=== PATIENT | male | born 1970 | race African-American/Black ===

== ENCOUNTER 2022-01-27 18:46 | Inpatient (IN) | payer OTHER ==
[2022-01-27] MEDS ORDERED: FAMOTIDINE 20 MG/50 ML IVPB 20 MG/50 ML MG IVPB ONE ×2 (19:38→20:09)
[2022-01-27] MEDS ORDERED: METOPROLOL TARTRATE 5 MG/5 ML VIAL ONE (20:18)
[2022-01-27] MEDS ORDERED: METOPROLOL TARTRATE 5 MG/5 ML VIAL IVPUSH ONE (20:21)
[2022-01-27 20:33] LABS: BASO % 0.3 % (0-2.0); HEMATOCRIT 40.8 % (35.4-49); HEMOGLOBIN 13.4 GM/dL (11.7-16.9); LYMPH % 13.3 % (8-40); MCH 30.7 pg (25.7-33.7); MCHC 32.8 g/dl (32.0-35.9); MEAN CELL VOLUME 93.8 fl (80-96); MEAN PLT VOLUME 9.5 fl (7.5-11.1); MONO % 6.3 % (3.8-10.2); NEUT % 80.1 % (42.8-82.8); PLATELET COUNT 227 10^3/uL (134-434); RBC 4.35 M/mm3 (4.00-5.60); RDW 13.8 % (11.9-15.9); WHITE BLOOD COUNT 10.8 K/mm3 (4.0-10.0)
[2022-01-27] MEDS ORDERED: SODIUM CHLORIDE 0.9% 500 ML INFUS.BAG IV ONE (20:34)
[2022-01-27 20:42] LABS: INR 1.82 (0.83-1.09); PROTHROMBIN TIME (PATIENT) 21.1 SEC (9.7-13.0)
[2022-01-27 20:45] LABS: ACTIVATED PTT 29.3 SECONDS (25.2-36.5)
[2022-01-27 20:50] LABS: CHLORIDE 95 mmol/L (98-107); SODIUM 130 mmol/L (136-145)
[2022-01-27 20:52] LABS: CALCIUM 8.5 mg/dL (8.5-10.1)
[2022-01-27 20:53] LABS: ANION GAP 9 MMOL/L (8-16); BLOOD UREA NITROGEN 50.8 mg/dL (7-18); CO2 25 mmol/L (21-32); GLUCOSE,RANDOM 114 mg/dL (74-106); MAGNESIUM 2.3 mg/dL (1.8-2.4)
[2022-01-27 20:55] LABS: ALBUMIN 2.5 g/dl (3.4-5.0)
[2022-01-27 20:56] LABS: CREATININE 1.9 mg/dL (0.55-1.3); SGOT/AST 98 U/L (15-37); SGPT/ALT 134 U/L (13-61)
[2022-01-27 20:58] LABS: BILIRUBIN,TOTAL 1.4 mg/dL (0.2-1); TOT PROT 6.6 g/dl (6.4-8.2)
[2022-01-27 20:59] LABS: ALK PHOS 143 U/L (45-117)
[2022-01-27 21:01] LABS: N-TERMINAL BNP 10474.8 pg/ml (5-125)
[2022-01-27] MEDS: APIXABAN 5 MG TABLET PO SCH (21:12)
[2022-01-27] MEDS ORDERED: DIGOXIN 0.5 MG/2 ML AMPUL IVPUSH ONE ×2 (21:23→23:50)
[2022-01-27] MEDS ORDERED: ASPIRIN 81 MG CHEWABLE TABLETS PO ONE (21:24)
[2022-01-27] MEDS ORDERED: DIGOXIN 0.5 MG/2 ML AMPUL ONE (21:56)
[2022-01-27] MEDS ORDERED: ASPIRIN 81 MG CHEWABLE TABLETS ONE (21:56)
[2022-01-27 23:07] LABS: URINE AMPHETAMINES NEGATIVE (NEGATIVE)
[2022-01-27 23:08] LABS: METHADONE, UR NEGATIVE (NEGATIVE); PHENCYCLIDINE,URINE NEGATIVE (NEGATIVE); URINE BARBITURATES NEGATIVE (NEGATIVE); URINE BENZODIAZEPINES NEGATIVE (NEGATIVE)
[2022-01-27 23:12] LABS: COCAINE, UR POSITIVE (NEGATIVE); OPIATES, URI POSITIVE (NEGATIVE)
[2022-01-27 23:20] LABS: EPI CELLS 1 /uL (0-25.1); HYALINE CASTS 0 /uL (0-3.1); PH,URINE 5.5 (5.0-8.0); URINE APPEARANCE CLEAR; URINE BACTERIA 2 /uL (0-1359); URINE BILIRUBIN NEGATIVE (NEGATIVE); URINE COLOR YELLOW; URINE GLUCOSE (UA) NEGATIVE (NEGATIVE); URINE KETONE NEGATIVE (NEGATIVE); URINE LEUK ESTERASE NEGATIVE (NEGATIVE); URINE NITRITE NEGATIVE (NEGATIVE); URINE PROTEIN 1+ (NEGATIVE); URINE RBC 7 /uL (0-23.9); URINE WBC 3 /uL (0-25.8)
[2022-01-28] MEDS ORDERED: LORazepam 2 MG/ML SDV VIAL IVPUSH PRN (00:13)
[2022-01-28 03:31] LABS: CALCIUM 8.1 mg/dL (8.5-10.1)
[2022-01-28 03:32] LABS: BLOOD UREA NITROGEN 46.1 mg/dL (7-18)
[2022-01-28 03:35] LABS: CREATININE 1.7 mg/dL (0.55-1.3)
[2022-01-28 07:46] LABS: BASO % 0.1 % (0-2.0); EOS % 0.1 % (0-4.5); HEMATOCRIT 37.1 % (35.4-49); HEMOGLOBIN 12.4 GM/dL (11.7-16.9); LYMPH % 7.2 % (8-40); MCH 30.8 pg (25.7-33.7); MCHC 33.4 g/dl (32.0-35.9); MEAN CELL VOLUME 92.4 fl (80-96); MEAN PLT VOLUME 9.3 fl (7.5-11.1); MONO % 5.3 % (3.8-10.2); NEUT % 87.3 % (42.8-82.8); PLATELET COUNT 191 10^3/uL (134-434); RBC 4.01 M/mm3 (4.00-5.60); RDW 13.6 % (11.9-15.9); WHITE BLOOD COUNT 10.3 K/mm3 (4.0-10.0)
[2022-01-28 08:12] LABS: TOT PROT 5.5 g/dl (6.4-8.2)
[2022-01-28 08:13] LABS: BILIRUBIN,TOTAL 1.7 mg/dL (0.2-1)
[2022-01-28 08:14] LABS: BLOOD UREA NITROGEN 39.8 mg/dL (7-18); PHOSPHOROUS 2.6 mg/dL (2.5-4.9)
[2022-01-28 08:17] LABS: CREATININE 1.4 mg/dL (0.55-1.3)
[2022-01-28 08:19] LABS: CALCIUM 7.8 mg/dL (8.5-10.1); MAGNESIUM 2.1 mg/dL (1.8-2.4)
[2022-01-28 08:22] LABS: ALBUMIN 1.9 g/dl (3.4-5.0)
[2022-01-28] MEDS: NICOTINE 7 MG/24 HOURS TOPICAL PATCH TD SCH (09:34)
[2022-01-28] MEDS: THIAMINE HCL 100 MG TABLET (FP) PO SCH (09:34)
[2022-01-28] MEDS: DIGOXIN 0.5 MG/2 ML AMPUL IVPUSH SCH ×3 (09:34→23:09)
[2022-01-28] MEDS: FOLIC ACID 1 MG TABLET (FP) PO SCH (09:34)
[2022-01-28] MEDS: APIXABAN 5 MG TABLET PO SCH ×2 (09:34→22:06)
[2022-01-28] MEDS ORDERED: METOPROLOL TARTRATE 5 MG/5 ML VIAL IVPUSH PRN (09:42)
[2022-01-28] MEDS ORDERED: cloNIDine HCL 0.1 MG TABLET PO PRN (10:19)
[2022-01-28] MEDS ORDERED: LORazepam 0.5 MG TABLET PO PRN (10:20)
[2022-01-28] MEDS ORDERED: methaDONE HCL 10 MG TABLET (FOR DETOX USE ONLY) PO ONE (10:30)
[2022-01-28] MEDS ORDERED: methaDONE HCL 10 MG TABLET PO ONE (12:00)
[2022-01-28] MEDS ORDERED: methaDONE HCL 10 MG TABLET ONE (12:24)
[2022-01-28] MEDS ORDERED: LISINOPRIL 5 MG TABLET PO SCH (19:15)
[2022-01-28] MEDS: ACETAMINOPHEN 1000 MG/100 ML BAG IVPB PRN (22:05)
[2022-01-28] MEDS: CARVEDILOL 3.125 MG TABLET (FP) PO SCH (22:06)
[2022-01-28] MEDS: SACUBITRIL/VALSARTAN 24 MG-26 MG TABLET PO SCH (22:06)
[2022-01-28] MEDS: SPIRONOLACTONE 25 MG TABLET PO SCH (22:06)
[2022-01-28] MEDS ORDERED: DIGOXIN 0.5 MG/2 ML AMPUL ONE (23:01)
[2022-01-29 07:00] LABS: BASO % 0.2 % (0-2.0); EOS % 0.2 % (0-4.5); HEMATOCRIT 40.6 % (35.4-49); HEMOGLOBIN 13.6 GM/dL (11.7-16.9); MCH 31.3 pg (25.7-33.7); MCHC 33.6 g/dl (32.0-35.9); MEAN CELL VOLUME 93.1 fl (80-96); MEAN PLT VOLUME 8.6 fl (7.5-11.1); NEUT % 86.6 % (42.8-82.8); PLATELET COUNT 230 10^3/uL (134-434); RBC 4.36 M/mm3 (4.00-5.60); RDW 13.7 % (11.9-15.9); WHITE BLOOD COUNT 11.1 K/mm3 (4.0-10.0)
[2022-01-29 07:05] LABS: INR 1.7 (0.83-1.09); PROTHROMBIN TIME (PATIENT) 19.6 SEC (9.7-13.0)
[2022-01-29 07:26] LABS: BLOOD UREA NITROGEN 19.1 mg/dL (7-18); CALCIUM 7.7 mg/dL (8.5-10.1); MAGNESIUM 2.1 mg/dL (1.8-2.4)
[2022-01-29 07:27] LABS: ALBUMIN 1.8 g/dl (3.4-5.0)
[2022-01-29 07:30] LABS: CREATININE 1.1 mg/dL (0.55-1.3)
[2022-01-29 07:31] LABS: BILIRUBIN,TOTAL 1.4 mg/dL (0.2-1); TOT PROT 5.4 g/dl (6.4-8.2)
[2022-01-29] MEDS ORDERED: methaDONE HCL 10 MG TABLET ONE (11:35)
[2022-01-29] MEDS: THIAMINE HCL 100 MG TABLET (FP) PO SCH (11:43)
[2022-01-29] MEDS: NICOTINE 7 MG/24 HOURS TOPICAL PATCH TD SCH (11:43)
[2022-01-29] MEDS: SPIRONOLACTONE 25 MG TABLET PO SCH (11:43)
[2022-01-29] MEDS: FOLIC ACID 1 MG TABLET (FP) PO SCH (11:44)
[2022-01-29] MEDS: CARVEDILOL 3.125 MG TABLET (FP) PO SCH ×3 (11:44→21:10)
[2022-01-29] MEDS: APIXABAN 5 MG TABLET PO SCH ×3 (11:44→21:10)
[2022-01-29] MEDS: SACUBITRIL/VALSARTAN 24 MG-26 MG TABLET PO SCH ×3 (11:44→21:10)
[2022-01-30] MEDS ORDERED: methaDONE HCL 10 MG TABLET PO ONE (06:00)
[2022-01-30 07:14] LABS: BASO % 0.2 % (0-2.0); HEMATOCRIT 44.2 % (35.4-49); HEMOGLOBIN 14.6 GM/dL (11.7-16.9); LYMPH % 8.5 % (8-40); MCH 30.8 pg (25.7-33.7); MCHC 33.1 g/dl (32.0-35.9); MEAN CELL VOLUME 93.1 fl (80-96); NEUT % 85.3 % (42.8-82.8); PLATELET COUNT 288 10^3/uL (134-434); RBC 4.75 M/mm3 (4.00-5.60); RDW 14.1 % (11.9-15.9); WHITE BLOOD COUNT 13.1 K/mm3 (4.0-10.0)
[2022-01-30 07:29] LABS: CALCIUM 8.1 mg/dL (8.5-10.1)
[2022-01-30 07:30] LABS: ALBUMIN 1.8 g/dl (3.4-5.0); BLOOD UREA NITROGEN 14.3 mg/dL (7-18); MAGNESIUM 1.9 mg/dL (1.8-2.4)
[2022-01-30 07:33] LABS: CREATININE 0.9 mg/dL (0.55-1.3)
[2022-01-30 07:35] LABS: BILIRUBIN,TOTAL 1.6 mg/dL (0.2-1); TOT PROT 6.1 g/dl (6.4-8.2)
[2022-01-30] MEDS: THIAMINE HCL 100 MG TABLET (FP) PO SCH (09:42)
[2022-01-30] MEDS: SPIRONOLACTONE 25 MG TABLET PO SCH (09:42)
[2022-01-30] MEDS: FOLIC ACID 1 MG TABLET (FP) PO SCH (09:42)
[2022-01-30] MEDS: CARVEDILOL 3.125 MG TABLET (FP) PO SCH ×3 (09:42→21:12)
[2022-01-30] MEDS: APIXABAN 5 MG TABLET PO SCH ×3 (09:42→21:13)
[2022-01-30] MEDS: NICOTINE 7 MG/24 HOURS TOPICAL PATCH TD SCH (09:43)
[2022-01-30] MEDS: SACUBITRIL/VALSARTAN 24 MG-26 MG TABLET PO SCH ×3 (09:43→21:15)
[2022-01-30] MEDS ORDERED: methaDONE HCL 10 MG TABLET (FOR DETOX USE ONLY) PO ONE (10:00)
[2022-01-30] MEDS: LORazepam 1 MG TABLET PO PRN (20:39)
[2022-01-30] MEDS: ACETAMINOPHEN 1000 MG/100 ML BAG IVPB PRN (21:04)
[2022-01-31] MEDS ORDERED: LORazepam 0.5 MG TABLET PO PRN
[2022-01-31 00:07] LABS: FIBROSIS SCORE. 0.69 (0.00-0.21); HCV ALPHA 2 MACRO CHART 170 mg/dL (110-276); NECRO.INFLAM ACT.SCORE 0.74 (0.00-0.17); NECROINFLAM. ACTIVITY GRADE A3-Severe activity (.)
[2022-01-31] MEDS ORDERED: methaDONE HCL 10 MG TABLET ONE (05:44)
[2022-01-31] MEDS: METOPROLOL TARTRATE 5 MG/5 ML VIAL IVPUSH PRN ×3 (07:34→19:36)
[2022-01-31 07:39] LABS: BASO % 0.3 % (0-2.0); EOS % 0.2 % (0-4.5); HEMATOCRIT 48.1 % (35.4-49); HEMOGLOBIN 15.7 GM/dL (11.7-16.9); LYMPH % 17.6 % (8-40); MCH 30.8 pg (25.7-33.7); MCHC 32.7 g/dl (32.0-35.9); MEAN CELL VOLUME 94.1 fl (80-96); MEAN PLT VOLUME 9.5 fl (7.5-11.1); MONO % 5.5 % (3.8-10.2); NEUT % 76.4 % (42.8-82.8); PLATELET COUNT 370 10^3/uL (134-434); RBC 5.11 M/mm3 (4.00-5.60); WHITE BLOOD COUNT 12.6 K/mm3 (4.0-10.0)
[2022-01-31 07:58] LABS: CALCIUM 8.7 mg/dL (8.5-10.1)
[2022-01-31 07:59] LABS: BLOOD UREA NITROGEN 19.8 mg/dL (7-18); MAGNESIUM 2.2 mg/dL (1.8-2.4)
[2022-01-31 08:03] LABS: BILIRUBIN,TOTAL 1.6 mg/dL (0.2-1); TOT PROT 6.6 g/dl (6.4-8.2)
[2022-01-31] MEDS: LORazepam 1 MG TABLET PO PRN (10:00)
[2022-01-31] MEDS: THIAMINE HCL 100 MG TABLET (FP) PO SCH (10:00)
[2022-01-31] MEDS: CARVEDILOL 3.125 MG TABLET (FP) PO SCH ×2 (10:00→22:09)
[2022-01-31] MEDS: NICOTINE 7 MG/24 HOURS TOPICAL PATCH TD SCH (10:00)
[2022-01-31] MEDS: APIXABAN 5 MG TABLET PO SCH ×2 (10:00→22:09)
[2022-01-31] MEDS: SPIRONOLACTONE 25 MG TABLET PO SCH (10:00)
[2022-01-31] MEDS: FOLIC ACID 1 MG TABLET (FP) PO SCH (10:00)
[2022-01-31] MEDS: SACUBITRIL/VALSARTAN 24 MG-26 MG TABLET PO SCH ×2 (10:03→22:09)
[2022-01-31] MEDS: FUROSEMIDE 40 MG/4 ML INJECTABLE VIAL IVPUSH SCH (13:54)
[2022-01-31] MEDS: LORazepam 1 MG TABLET PO SCH ×2 (18:06→23:07)
[2022-02-01] MEDS: LORazepam 0.5 MG TABLET PO SCH ×2 (05:29→11:22)
[2022-02-01] MEDS ORDERED: methaDONE HCL 10 MG TABLET PO ONE (06:00)
[2022-02-01 07:11] LABS: BASO % 0.6 % (0-2.0); EOS % 0.5 % (0-4.5); HEMATOCRIT 48.1 % (35.4-49); HEMOGLOBIN 15.9 GM/dL (11.7-16.9); LYMPH % 26.5 % (8-40); MCH 30.7 pg (25.7-33.7); MEAN CELL VOLUME 92.9 fl (80-96); MEAN PLT VOLUME 8.8 fl (7.5-11.1); MONO % 6.9 % (3.8-10.2); NEUT % 65.5 % (42.8-82.8); PLATELET COUNT 394 10^3/uL (134-434); RBC 5.17 M/mm3 (4.00-5.60); RDW 14.4 % (11.9-15.9); WHITE BLOOD COUNT 10.8 K/mm3 (4.0-10.0)
[2022-02-01 07:30] LABS: CALCIUM 8.4 mg/dL (8.5-10.1)
[2022-02-01 07:31] LABS: ALBUMIN 1.9 g/dl (3.4-5.0); BLOOD UREA NITROGEN 20.8 mg/dL (7-18); MAGNESIUM 2.2 mg/dL (1.8-2.4)
[2022-02-01 07:33] LABS: CREATININE 1.1 mg/dL (0.55-1.3)
[2022-02-01 07:34] LABS: BILIRUBIN,TOTAL 1.7 mg/dL (0.2-1); TOT PROT 6.6 g/dl (6.4-8.2)
[2022-02-01] MEDS ORDERED: methaDONE HCL 10 MG TABLET (FOR DETOX USE ONLY) PO ONE (10:00)
[2022-02-01] MEDS: FUROSEMIDE 40 MG/4 ML INJECTABLE VIAL IVPUSH SCH (10:11)
[2022-02-01] MEDS: FOLIC ACID 1 MG TABLET (FP) PO SCH (10:11)
[2022-02-01] MEDS: APIXABAN 5 MG TABLET PO SCH ×2 (10:11→21:40)
[2022-02-01] MEDS: SPIRONOLACTONE 25 MG TABLET PO SCH (10:11)
[2022-02-01] MEDS: THIAMINE HCL 100 MG TABLET (FP) PO SCH (10:11)
[2022-02-01] MEDS: CARVEDILOL 3.125 MG TABLET (FP) PO SCH ×2 (10:12→21:40)
[2022-02-01] MEDS: SACUBITRIL/VALSARTAN 24 MG-26 MG TABLET PO SCH ×2 (10:12→21:40)
[2022-02-01] MEDS: NICOTINE 7 MG/24 HOURS TOPICAL PATCH TD SCH (10:12)
[2022-02-01] MEDS ORDERED: AMINO ACIDS 4.25%/D5W 1,000 ML IV SCH (11:30)
[2022-02-01 12:08] LABS: ARTERIAL BLD GAS O2 SATURATION 97.6 % (95-98); ARTERIAL BLOOD GAS BASE EXCESS 2.8 mmol/L (-2-2); ARTERIAL BLOOD GAS PO2 87.6 mmHg (80-100); ARTERIAL BLOOD GAS pH 7.534 (7.350-7.450)
[2022-02-01 12:10] LABS: ALLENS TEST POSITIVE
[2022-02-01 13:58] LABS: URINE APPEARANCE CLEAR; URINE BILIRUBIN NEGATIVE (NEGATIVE); URINE COLOR YELLOW; URINE GLUCOSE (UA) NEGATIVE (NEGATIVE); URINE KETONE NEGATIVE (NEGATIVE); URINE LEUK ESTERASE NEGATIVE (NEGATIVE); URINE NITRITE NEGATIVE (NEGATIVE); URINE PROTEIN NEGATIVE (NEGATIVE)
[2022-02-02] MEDS ORDERED: LORazepam 0.5 MG TABLET PO ONE (05:00)
[2022-02-02 07:30] LABS: BASO % 0.7 % (0-2.0); EOS % 0.6 % (0-4.5); HEMATOCRIT 46.9 % (35.4-49); HEMOGLOBIN 15.3 GM/dL (11.7-16.9); LYMPH % 37.5 % (8-40); MCH 30.7 pg (25.7-33.7); MCHC 32.7 g/dl (32.0-35.9); MEAN CELL VOLUME 93.8 fl (80-96); MEAN PLT VOLUME 8.7 fl (7.5-11.1); MONO % 7.2 % (3.8-10.2); PLATELET COUNT 381 10^3/uL (134-434); RDW 13.9 % (11.9-15.9); WHITE BLOOD COUNT 7.7 K/mm3 (4.0-10.0)
[2022-02-02 07:47] LABS: ALBUMIN 1.8 g/dl (3.4-5.0); MAGNESIUM 1.8 mg/dL (1.8-2.4)
[2022-02-02 07:48] LABS: BLOOD UREA NITROGEN 19.5 mg/dL (7-18)
[2022-02-02 07:50] LABS: CREATININE 1.1 mg/dL (0.55-1.3)
[2022-02-02 07:51] LABS: TOT PROT 6.7 g/dl (6.4-8.2)
[2022-02-02] MEDS: NICOTINE 7 MG/24 HOURS TOPICAL PATCH TD SCH (09:15)
[2022-02-02] MEDS: FOLIC ACID 1 MG TABLET (FP) PO SCH (09:15)
[2022-02-02] MEDS: APIXABAN 5 MG TABLET PO SCH (09:15)
[2022-02-02] MEDS: THIAMINE HCL 100 MG TABLET (FP) PO SCH (09:15)
[2022-02-02] MEDS: SPIRONOLACTONE 25 MG TABLET PO SCH (09:15)
[2022-02-02] MEDS: CARVEDILOL 3.125 MG TABLET (FP) PO SCH ×2 (09:15→23:05)
[2022-02-02] MEDS: FUROSEMIDE 40 MG/4 ML INJECTABLE VIAL IVPUSH SCH (09:21)
[2022-02-02] MEDS: SACUBITRIL/VALSARTAN 24 MG-26 MG TABLET PO SCH ×2 (09:21→23:05)
[2022-02-02] MEDS ORDERED: HEPARIN NA (PORCINE) 5,000 UNITS/ML 1ML VIAL IVPUSH ONE (15:30)
[2022-02-02] MEDS ORDERED: HEPARIN NA (PORCINE) 5,000 UNITS/ML 1ML VIAL IVPUSH PRN ×2 (15:30)
[2022-02-02] MEDS ORDERED: valACYclovir HCL 500 MG TABLET (FP) PO SCH (15:44)
[2022-02-02] MEDS: MINERAL OIL/PET HY-PHL TOPICAL OINTMENT 454 GM JAR TP SCH ×2 (16:09→23:00)
[2022-02-02] MEDS: HEPARIN INFUSION - 25,000 UNITS/500 ML INFUS.BAG IVPB SCH (17:07)
[2022-02-02] MEDS ORDERED: LORazepam 1 MG TABLET PO ONE (17:41)
[2022-02-02 18:08] LABS: INR 1.54 (0.83-1.09); PROTHROMBIN TIME (PATIENT) 17.8 SEC (9.7-13.0)
[2022-02-02] MEDS: valACYclovir HCL 500 MG TABLET (FP) PO SCH (23:00)
[2022-02-03 08:22] LABS: BASO % 0.9 % (0-2.0); HEMATOCRIT 46.8 % (35.4-49); HEMOGLOBIN 15.4 GM/dL (11.7-16.9); LYMPH % 39.3 % (8-40); MCH 30.4 pg (25.7-33.7); MCHC 32.9 g/dl (32.0-35.9); MEAN CELL VOLUME 92.4 fl (80-96); MEAN PLT VOLUME 8.8 fl (7.5-11.1); MONO % 7.2 % (3.8-10.2); NEUT % 51.6 % (42.8-82.8); PLATELET COUNT 387 10^3/uL (134-434); RBC 5.06 M/mm3 (4.00-5.60); RDW 13.9 % (11.9-15.9); WHITE BLOOD COUNT 7.5 K/mm3 (4.0-10.0)
[2022-02-03 08:42] LABS: CALCIUM 8.2 mg/dL (8.5-10.1)
[2022-02-03 08:44] LABS: ALBUMIN 1.9 g/dl (3.4-5.0); BLOOD UREA NITROGEN 20.4 mg/dL (7-18); MAGNESIUM 1.9 mg/dL (1.8-2.4)
[2022-02-03 08:46] LABS: CREATININE 1.1 mg/dL (0.55-1.3)
[2022-02-03 08:49] LABS: BILIRUBIN,TOTAL 0.6 mg/dL (0.2-1); TOT PROT 6.4 g/dl (6.4-8.2)
[2022-02-03] MEDS: FUROSEMIDE 40 MG/4 ML INJECTABLE VIAL IVPUSH SCH (09:09)
[2022-02-03] MEDS: FOLIC ACID 1 MG TABLET (FP) PO SCH (09:09)
[2022-02-03] MEDS: NICOTINE 7 MG/24 HOURS TOPICAL PATCH TD SCH (09:10)
[2022-02-03] MEDS: THIAMINE HCL 100 MG TABLET (FP) PO SCH (09:10)
[2022-02-03] MEDS: SPIRONOLACTONE 25 MG TABLET PO SCH ×2 (09:10→09:11)
[2022-02-03] MEDS: valACYclovir HCL 500 MG TABLET (FP) PO SCH ×2 (09:10→22:25)
[2022-02-03] MEDS: MINERAL OIL/PET HY-PHL TOPICAL OINTMENT 454 GM JAR TP SCH ×2 (09:11→22:26)
[2022-02-03] MEDS: CARVEDILOL 3.125 MG TABLET (FP) PO SCH ×2 (09:13→22:25)
[2022-02-03] MEDS: SACUBITRIL/VALSARTAN 24 MG-26 MG TABLET PO SCH ×2 (09:14→22:26)
[2022-02-03] MEDS: LORazepam 1 MG TABLET PO PRN ×2 (12:14→22:24)
[2022-02-03 14:08] LABS: SARS-CoV-2 NAA Not Detected (Not Detected)
[2022-02-03 16:13] VITALS: BMI 23.3
[2022-02-03] MEDS: HEPARIN INFUSION - 25,000 UNITS/500 ML INFUS.BAG IVPB SCH (19:28)
[2022-02-03] MEDS ORDERED: ACETAMINOPHEN 325 MG TABLET (FP) PO PRN (20:12)
[2022-02-04 07:23] LABS: ALBUMIN 1.9 g/dl (3.4-5.0); BLOOD UREA NITROGEN 16.8 mg/dL (7-18); CALCIUM 7.9 mg/dL (8.5-10.1)
[2022-02-04 08:25] LABS: BILIRUBIN,DIRECT 0.2 mg/dL (0.0-0.2); BILIRUBIN,TOTAL 0.4 mg/dL (0.2-1); TOT PROT 6.4 g/dl (6.4-8.2)
[2022-02-04] MEDS ORDERED: MULTIVITAMINS (DAILY MVI) TABLET (FP) PO SCH (10:00)
[2022-02-04] MEDS: LORazepam 1 MG TABLET PO PRN ×2 (10:39→22:14)
[2022-02-04] MEDS: NICOTINE 7 MG/24 HOURS TOPICAL PATCH TD SCH (10:39)
[2022-02-04] MEDS: valACYclovir HCL 500 MG TABLET (FP) PO SCH ×2 (10:40→22:14)
[2022-02-04] MEDS: FOLIC ACID 1 MG TABLET (FP) PO SCH (10:43)
[2022-02-04] MEDS: FUROSEMIDE 40 MG/4 ML INJECTABLE VIAL IVPUSH SCH (10:44)
[2022-02-04] MEDS: THIAMINE HCL 100 MG TABLET (FP) PO SCH (10:44)
[2022-02-04] MEDS: CARVEDILOL 3.125 MG TABLET (FP) PO SCH ×2 (10:44→22:14)
[2022-02-04] MEDS: MINERAL OIL/PET HY-PHL TOPICAL OINTMENT 454 GM JAR TP SCH ×2 (10:44→22:15)
[2022-02-04] MEDS: SPIRONOLACTONE 25 MG TABLET PO SCH (10:44)
[2022-02-04] MEDS: SACUBITRIL/VALSARTAN 24 MG-26 MG TABLET PO SCH ×2 (10:45→22:15)
[2022-02-04] MEDS ORDERED: HEPARIN NA (PORCINE) 5,000 UNITS/ML 1ML VIAL ONE (14:35)
[2022-02-04] MEDS ORDERED: LIDOCAINE HCL 1%, 10 MG/ML (20ML VIAL) ONE (14:35)
[2022-02-04] MEDS ORDERED: MIDAZOLAM HCL 2 MG/2 ML SINGLE DOSE VIAL ONE (15:13)
[2022-02-04] MEDS ORDERED: LIDOCAINE HCL 2% 100 MG/5 ML DISP.SYRIN ONE (15:13)
[2022-02-04] MEDS ORDERED: ETOMIDATE 20 MG/10 ML AMPUL IVPUSH ONE (15:32)
[2022-02-04] MEDS ORDERED: CLINDAMYCIN PHOSPHATE 600 MG/4 ML VIAL IVPB ONE (15:50)
[2022-02-04] MEDS ORDERED: CLINDAMYCIN PHOSPHATE 600 MG/4 ML VIAL ONE (15:55)
[2022-02-04] MEDS ORDERED: SODIUM CHLORIDE 0.9% P/F 10 ML VIAL IJ ONE (16:28)
[2022-02-04] MEDS ORDERED: PROMETHAZINE HCL 25 MG/1 ML VIAL IVPUSH PRN ×2 (17:47→18:06)
[2022-02-04] MEDS ORDERED: ONDANSETRON 4 MG/2 ML VIAL IVPUSH PRN ×2 (17:47→18:06)
[2022-02-04] MEDS ORDERED: oxyCODONE HCL 5 MG TABLET PO PRN (17:47)
[2022-02-04] MEDS ORDERED: APIXABAN 5 MG TABLET PO SCH (17:59)
[2022-02-04] MEDS ORDERED: METOPROLOL TARTRATE 5 MG/5 ML VIAL IVPUSH PRN (18:06)
[2022-02-04] MEDS ORDERED: HEPARIN NA (PORCINE) 5,000 UNITS/ML 1ML VIAL IVPUSH PRN ×3 (19:15→19:16)
[2022-02-04] MEDS: HEPARIN INFUSION - 25,000 UNITS/500 ML INFUS.BAG IVPB SCH (19:27)
[2022-02-04] MEDS: oxyCODONE HCL 5 MG TABLET PO PRN (20:34)
[2022-02-05] MEDS: oxyCODONE HCL 5 MG TABLET PO PRN ×3 (00:50→17:17)
[2022-02-05] MEDS: LORazepam 1 MG TABLET PO PRN ×3 (06:46→21:42)
[2022-02-05 07:07] LABS: BASO % 1.2 % (0-2.0); EOS % 2.2 % (0-4.5); HEMATOCRIT 43.1 % (35.4-49); HEMOGLOBIN 14.2 GM/dL (11.7-16.9); MEAN CELL VOLUME 93.9 fl (80-96); MEAN PLT VOLUME 8.3 fl (7.5-11.1); MONO % 7.8 % (3.8-10.2); NEUT % 40.8 % (42.8-82.8); PLATELET COUNT 327 10^3/uL (134-434); RBC 4.59 M/mm3 (4.00-5.60); RDW 14.3 % (11.9-15.9); WHITE BLOOD COUNT 5.9 K/mm3 (4.0-10.0)
[2022-02-05 07:20] LABS: ALBUMIN 1.9 g/dl (3.4-5.0)
[2022-02-05 07:21] LABS: CALCIUM 7.9 mg/dL (8.5-10.1)
[2022-02-05 07:22] LABS: BILIRUBIN,TOTAL 0.4 mg/dL (0.2-1); CREATININE 1.3 mg/dL (0.55-1.3); MAGNESIUM 2.1 mg/dL (1.8-2.4); TOT PROT 6.4 g/dl (6.4-8.2)
[2022-02-05] MEDS: HEPARIN INFUSION - 25,000 UNITS/500 ML INFUS.BAG IVPB SCH (09:00)
[2022-02-05] MEDS: valACYclovir HCL 500 MG TABLET (FP) PO SCH ×2 (09:10→21:46)
[2022-02-05] MEDS: CARVEDILOL 3.125 MG TABLET (FP) PO SCH ×2 (09:10→21:45)
[2022-02-05] MEDS: SACUBITRIL/VALSARTAN 24 MG-26 MG TABLET PO SCH ×2 (09:12→21:45)
[2022-02-05] MEDS: NICOTINE 7 MG/24 HOURS TOPICAL PATCH TD SCH ×2 (09:14→09:15)
[2022-02-05] MEDS: SPIRONOLACTONE 25 MG TABLET PO SCH (09:14)
[2022-02-05] MEDS: THIAMINE HCL 100 MG TABLET (FP) PO SCH (09:15)
[2022-02-05] MEDS: FUROSEMIDE 40 MG/4 ML INJECTABLE VIAL IVPUSH SCH (09:15)
[2022-02-05] MEDS: MINERAL OIL/PET HY-PHL TOPICAL OINTMENT 454 GM JAR TP SCH ×2 (09:18→21:43)
[2022-02-05] MEDS: FOLIC ACID 1 MG TABLET (FP) PO SCH (09:18)
[2022-02-05] MEDS: MULTIVITAMINS (DAILY MVI) TABLET (FP) PO SCH (11:39)
[2022-02-05 23:32] VITALS: TEMP 98.5
[2022-02-06] MEDS: HEPARIN INFUSION - 25,000 UNITS/500 ML INFUS.BAG IVPB SCH (00:40)
[2022-02-06 07:18] LABS: HEMOGLOBIN 14.4 GM/dL (11.7-16.9); MCH 30.8 pg (25.7-33.7); MCHC 32.8 g/dl (32.0-35.9); MEAN CELL VOLUME 93.9 fl (80-96); MEAN PLT VOLUME 8.2 fl (7.5-11.1); PLATELET COUNT 344 10^3/uL (134-434); RBC 4.69 M/mm3 (4.00-5.60); RDW 14.6 % (11.9-15.9); WHITE BLOOD COUNT 5.9 K/mm3 (4.0-10.0)
[2022-02-06] MEDS: MINERAL OIL/PET HY-PHL TOPICAL OINTMENT 454 GM JAR TP SCH (09:00)
[2022-02-06] MEDS ORDERED: REGADENOSON 0.4 MG/5 ML PRE-FILLED SYRINGE IVPUSH ONE ×2 (09:45→10:09)
[2022-02-06] MEDS: SPIRONOLACTONE 25 MG TABLET PO SCH (10:00)
[2022-02-06] MEDS: THIAMINE HCL 100 MG TABLET (FP) PO SCH (10:00)
[2022-02-06] MEDS: SACUBITRIL/VALSARTAN 24 MG-26 MG TABLET PO SCH (10:00)
[2022-02-06] MEDS: MULTIVITAMINS (DAILY MVI) TABLET (FP) PO SCH (10:00)
[2022-02-06] MEDS: FOLIC ACID 1 MG TABLET (FP) PO SCH (10:00)
[2022-02-06] MEDS: FUROSEMIDE 40 MG/4 ML INJECTABLE VIAL IVPUSH SCH (10:00)
[2022-02-06] MEDS: CARVEDILOL 3.125 MG TABLET (FP) PO SCH (10:00)
[2022-02-06 12:15] VITALS: BP 115/57
[2022-02-06] MEDS: LORazepam 1 MG TABLET PO PRN (12:35)
[2022-02-06] MEDS: NICOTINE 7 MG/24 HOURS TOPICAL PATCH TD SCH ×2 (12:49→13:07)
[2022-02-06] MEDS: valACYclovir HCL 500 MG TABLET (FP) PO SCH (12:49)
[2022-02-06 13:31] VITALS: PULSE 169
== END 2022-02-06 15:02 | disposition left against medical advice (07) | DRG 181 ==
LOC: JER 18:46 → JERBED 22:05 → J4W 01-28 02:12
PROVIDERS: ADMIT Internal Medicine; ATTEND Nurse Practitioner Acute Care
PROC: HZ2ZZZZ Detoxification Services for Substance Abuse Treatment (ICD-10-PCS; 2022-01-27)
PROC: 047N3ZZ Dilation of Left Popliteal Artery, Percutaneous Approach (ICD-10-PCS; 2022-02-04)
PROC: 047Q3ZZ Dilation of Left Anterior Tibial Artery, Percutaneous Approach (ICD-10-PCS; 2022-02-04)
PROC: 3E05317 Introduction of Other Thrombolytic into Peripheral Artery, Percutaneous Approach (ICD-10-PCS; 2022-02-04)
PROC: B40DYZZ Plain Radiography of Aorta and Bilateral Lower Extremity Arteries using Other Contrast (ICD-10-PCS; 2022-02-04)
PROC: 04CN3ZZ Extirpation of Matter from Left Popliteal Artery, Percutaneous Approach (ICD-10-PCS; principal; 2022-02-04 17:30)
DX: I48.91 Unspecified atrial fibrillation (principal); I74.3 Embolism and thrombosis of arteries of the lower extremities; I50.23 Acute on chronic systolic (congestive) heart failure; F10.231 Alcohol dependence with withdrawal delirium; F11.20 Opioid dependence, uncomplicated; N17.9 Acute kidney failure, unspecified; E87.1 Hypo-osmolality and hyponatremia; F17.210 Nicotine dependence, cigarettes, uncomplicated; R74.01 Elevation of levels of liver transaminase levels; D72.829 Elevated white blood cell count, unspecified; Z91.14 Patient's other noncompliance with medication regimen; Z59.00 Homelessness unspecified
CPT/HCPCS: 36415; 36600; 70450-TC; 71045-TC-FY; 71250-TC; 73630-TC-LT; 73630-TC-RT-FY; 76700-TC; 78452-TC; 80048; 80053; 80061; 80076; 80307; 81003; 82140; 82172; 82550; 82553; 82728; 82803; 82977; 83010; 83036; 83516; 83540; 83550; 83605; 83735; 83880; 83883; 84100; 84439; 84443; 84460; 84484; 85025; 85027; 85610; 85730; 86038; 86705; 86707; 86708; 86803; 86850; 86900; 86901; 87040; 87086; 87340; 87517; 87811; 93005; 93010; 93017; 93306-TC; 93925-TC; 93970-TC; 94760; 97116-GP; 97161-GP; 99285-25; A9502; C9803-CS; J1644; J2785; U0003; U0005

== ENCOUNTER 2023-02-03 19:12 | Inpatient (IN) | payer OTHER ==
[2023-02-03 23:42] LABS: BASO % 1.8 % (0-2.0); EOS % 4.7 % (0-4.5); HEMATOCRIT 36.3 % (35.4-49); HEMOGLOBIN 11.5 GM/dL (11.7-16.9); LYMPH % 45.4 % (8-40); MCH 28.1 pg (25.7-33.7); MCHC 31.8 g/dl (32.0-35.9); MEAN CELL VOLUME 88.3 fl (80-96); MEAN PLT VOLUME 7.4 fl (7.5-11.1); MONO % 9.6 % (3.8-10.2); NEUT % 38.5 % (42.8-82.8); PLATELET COUNT 293 10^3/uL (134-434); RBC 4.11 M/mm3 (4.00-5.60); RDW 18.6 % (11.9-15.9)
[2023-02-04 00:03] LABS: CHLORIDE 108 mmol/L (98-107); SODIUM 139 mmol/L (136-145)
[2023-02-04 00:07] LABS: CALCIUM 8.8 mg/dL (8.5-10.1)
[2023-02-04 00:08] LABS: CO2 24 mmol/L (21-32); GLUCOSE,RANDOM 101 mg/dL (74-106); MAGNESIUM 2.4 mg/dL (1.8-2.4)
[2023-02-04 00:10] LABS: CREATININE 2.3 mg/dL (0.55-1.3); SGOT/AST 114 U/L (15-37)
[2023-02-04 00:11] LABS: PHOSPHOROUS 5.4 mg/dL (2.5-4.9)
[2023-02-04 00:12] LABS: BILIRUBIN,TOTAL 1.1 mg/dL (0.2-1); TOT PROT 7.6 g/dl (6.4-8.2)
[2023-02-04 00:13] LABS: ALK PHOS 129 U/L (45-117)
[2023-02-04 00:16] LABS: N-TERMINAL BNP 5503.3 pg/ml (5-125)
[2023-02-04] MEDS ORDERED: SODIUM CHLORIDE 0.9% 500 ML INFUS.BAG IV ONE (00:19)
[2023-02-04] MEDS ORDERED: hydrOXYzine HCL 100 MG/2 ML VIAL IM ONE (00:20)
[2023-02-04] MEDS ORDERED: hydrOXYzine HCL 50 MG/ML VIAL IM ONE (00:24)
[2023-02-04 00:26] LABS: ANION GAP 7 MMOL/L (8-16); SGPT/ALT 65 U/L (13-61)
[2023-02-04 01:50] LABS: PH,URINE 5.5 (5.0-8.0); URINE APPEARANCE CLEAR; URINE BILIRUBIN NEGATIVE (NEGATIVE); URINE COLOR YELLOW; URINE GLUCOSE (UA) 2+ (NEGATIVE); URINE KETONE NEGATIVE (NEGATIVE); URINE LEUK ESTERASE NEGATIVE (NEGATIVE); URINE NITRITE NEGATIVE (NEGATIVE); URINE PROTEIN NEGATIVE (NEGATIVE)
[2023-02-04] MEDS ORDERED: methaDONE HCL 10 MG TABLET (FOR DETOX USE ONLY) PO ONE (02:57)
[2023-02-04] MEDS ORDERED: cloNIDine HCL 0.1 MG TABLET PO PRN (02:57)
[2023-02-04] MEDS ORDERED: hydrOXYzine HCL 100 MG/2 ML VIAL IM PRN (02:58)
[2023-02-04 03:01] LABS: METHADONE, UR NEGATIVE (NEGATIVE); OPIATES, URI NEGATIVE (NEGATIVE); PHENCYCLIDINE,URINE NEGATIVE (NEGATIVE); URINE AMPHETAMINES NEGATIVE (NEGATIVE); URINE BENZODIAZEPINES NEGATIVE (NEGATIVE)
[2023-02-04 03:08] LABS: COCAINE, UR POSITIVE (NEGATIVE); URINE BARBITURATES NEGATIVE (NEGATIVE)
[2023-02-04] MEDS: methaDONE HCL 10 MG TABLET PO ONE ×2 (06:04→07:08)
[2023-02-04] MEDS ORDERED: methaDONE HCL 10 MG TABLET ONE (06:05)
[2023-02-04] MEDS ORDERED: THIAMINE HCL 100 MG TABLET (FP) PO SCH ×2 (10:00)
[2023-02-04] MEDS ORDERED: SPIRONOLACTONE 25 MG TABLET PO SCH (10:00)
[2023-02-04] MEDS ORDERED: SACUBITRIL/VALSARTAN 24 MG-26 MG TABLET PO SCH (10:00)
[2023-02-04] MEDS ORDERED: CARVEDILOL 3.125 MG TABLET (FP) PO SCH (10:00)
[2023-02-04] MEDS ORDERED: FOLIC ACID 1 MG TABLET (FP) PO SCH (10:00)
[2023-02-04] MEDS: APIXABAN 5 MG TABLET PO SCH ×2 (16:46→21:02)
[2023-02-04] MEDS: FOLIC ACID 1 MG TABLET (FP) PO SCH (16:47)
[2023-02-04] MEDS: NICOTINE 14 MG/24 HOURS TOPICAL PATCH TD SCH (16:47)
[2023-02-04] MEDS: MULTIVITAMINS (DAILY MVI) TABLET (FP) PO SCH (16:47)
[2023-02-04 17:38] LABS: ALBUMIN 2.9 g/dl (3.4-5.0); BILIRUBIN,TOTAL 1.3 mg/dL (0.2-1); BLOOD UREA NITROGEN 49.7 mg/dL (7-18); CALCIUM 8.7 mg/dL (8.5-10.1); CREATININE 1.7 mg/dL (0.55-1.3); MAGNESIUM 2.4 mg/dL (1.8-2.4); TOT PROT 7.1 g/dl (6.4-8.2)
[2023-02-04 18:07] LABS: HIV INTERPRETATION NEGATIVE (NEGATIVE); SYPHILIS W/ RPR CONF NON-REACTIVE (NONREACTIVE)
[2023-02-04 19:00] VITALS: BMI 27.7
[2023-02-05 08:22] LABS: BASO % 1.4 % (0-2.0); HEMATOCRIT 34.2 % (35.4-49); HEMOGLOBIN 11.4 GM/dL (11.7-16.9); LYMPH % 41.7 % (8-40); MCH 29.4 pg (25.7-33.7); MCHC 33.5 g/dl (32.0-35.9); MEAN CELL VOLUME 87.6 fl (80-96); MEAN PLT VOLUME 7.9 fl (7.5-11.1); MONO % 9.8 % (3.8-10.2); NEUT % 39.1 % (42.8-82.8); PLATELET COUNT 269 10^3/uL (134-434); WHITE BLOOD COUNT 5.6 K/mm3 (4.0-10.0)
[2023-02-05 08:40] LABS: ALBUMIN 2.7 g/dl (3.4-5.0); CALCIUM 8.9 mg/dL (8.5-10.1)
[2023-02-05 08:41] LABS: BLOOD UREA NITROGEN 38.8 mg/dL (7-18)
[2023-02-05 08:44] LABS: CREATININE 1.5 mg/dL (0.55-1.3)
[2023-02-05 08:45] LABS: BILIRUBIN,TOTAL 0.9 mg/dL (0.2-1); TOT PROT 6.7 g/dl (6.4-8.2)
[2023-02-05] MEDS: NICOTINE 14 MG/24 HOURS TOPICAL PATCH TD SCH ×2 (09:45→09:48)
[2023-02-05] MEDS: MULTIVITAMINS (DAILY MVI) TABLET (FP) PO SCH (09:45)
[2023-02-05] MEDS: APIXABAN 5 MG TABLET PO SCH ×2 (09:45→21:57)
[2023-02-05] MEDS: FOLIC ACID 1 MG TABLET (FP) PO SCH (09:45)
[2023-02-05] MEDS: metoPROLOL SUCCINATE 25 MG TAB.SR.24H (FP) PO SCH (11:11)
[2023-02-05] MEDS: METOPROLOL TARTRATE 5 MG/5 ML VIAL IVPUSH ONE ×2 (11:48→15:55)
[2023-02-05 14:09] LABS: MAGNESIUM 2.1 mg/dL (1.8-2.4)
[2023-02-05 14:12] LABS: PHOSPHOROUS 2.8 mg/dL (2.5-4.9)
[2023-02-05] MEDS ORDERED: METOPROLOL TARTRATE 5 MG/5 ML VIAL IVPUSH PRN ×2 (15:21→15:37)
[2023-02-05] MEDS ORDERED: LORazepam 2 MG/ML SDV VIAL IVPUSH ONE (15:35)
[2023-02-06] MEDS ORDERED: methaDONE HCL 10 MG TABLET PO ONE (06:00)
[2023-02-06] MEDS: FOLIC ACID 1 MG TABLET (FP) PO SCH (09:42)
[2023-02-06] MEDS: NICOTINE 14 MG/24 HOURS TOPICAL PATCH TD SCH (09:43)
[2023-02-06] MEDS: metoPROLOL SUCCINATE 25 MG TAB.SR.24H (FP) PO SCH (09:43)
[2023-02-06] MEDS: MULTIVITAMINS (DAILY MVI) TABLET (FP) PO SCH (09:44)
[2023-02-06] MEDS: APIXABAN 5 MG TABLET PO SCH ×2 (09:46→22:09)
[2023-02-06 09:53] LABS: HEMATOCRIT 38.1 % (35.4-49); HEMOGLOBIN 12.3 GM/dL (11.7-16.9); MCH 28.5 pg (25.7-33.7); MCHC 32.4 g/dl (32.0-35.9); MEAN PLT VOLUME 7.7 fl (7.5-11.1); PLATELET COUNT 271 10^3/uL (134-434); RBC 4.32 M/mm3 (4.00-5.60); RDW 18.1 % (11.9-15.9); WHITE BLOOD COUNT 5.4 K/mm3 (4.0-10.0)
[2023-02-06] MEDS ORDERED: methaDONE HCL 10 MG TABLET (FOR DETOX USE ONLY) PO ONE (10:00)
[2023-02-06 10:09] LABS: CALCIUM 8.7 mg/dL (8.5-10.1)
[2023-02-06 10:10] LABS: ALBUMIN 2.7 g/dl (3.4-5.0); BLOOD UREA NITROGEN 27.9 mg/dL (7-18); MAGNESIUM 2.1 mg/dL (1.8-2.4)
[2023-02-06 10:13] LABS: CREATININE 1.4 mg/dL (0.55-1.3); PHOSPHOROUS 3.2 mg/dL (2.5-4.9)
[2023-02-06 10:14] LABS: BILIRUBIN,TOTAL 0.8 mg/dL (0.2-1); TOT PROT 7.1 g/dl (6.4-8.2)
[2023-02-07] MEDS: LORazepam 2 MG/ML SDV VIAL IVPUSH PRN ×2 (00:28→22:09)
[2023-02-07] MEDS: metoPROLOL SUCCINATE 25 MG TAB.SR.24H (FP) PO SCH (09:56)
[2023-02-07] MEDS: APIXABAN 5 MG TABLET PO SCH ×2 (09:56→22:09)
[2023-02-07] MEDS: FOLIC ACID 1 MG TABLET (FP) PO SCH (09:56)
[2023-02-07] MEDS: NICOTINE 14 MG/24 HOURS TOPICAL PATCH TD SCH (09:56)
[2023-02-07] MEDS: MULTIVITAMINS (DAILY MVI) TABLET (FP) PO SCH (09:57)
[2023-02-07 10:04] LABS: HEMATOCRIT 36.4 % (35.4-49); MCH 28.8 pg (25.7-33.7); MEAN CELL VOLUME 87.2 fl (80-96); MEAN PLT VOLUME 7.5 fl (7.5-11.1); PLATELET COUNT 249 10^3/uL (134-434); RBC 4.18 M/mm3 (4.00-5.60); WHITE BLOOD COUNT 5.3 K/mm3 (4.0-10.0)
[2023-02-07 10:45] LABS: ALBUMIN 2.7 g/dl (3.4-5.0); BLOOD UREA NITROGEN 21.9 mg/dL (7-18); CALCIUM 8.9 mg/dL (8.5-10.1); MAGNESIUM 2.1 mg/dL (1.8-2.4)
[2023-02-07 10:49] LABS: CREATININE 1.4 mg/dL (0.55-1.3)
[2023-02-07 10:51] LABS: BILIRUBIN,TOTAL 0.9 mg/dL (0.2-1); TOT PROT 7.1 g/dl (6.4-8.2)
[2023-02-07] MEDS: MINERAL OIL/PET HY-PHL TOPICAL OINTMENT 454 GM JAR TP SCH (13:17)
[2023-02-07] MEDS ORDERED: MAGNESIUM OXIDE 400 MG TABLET (FP) PO SCH (22:00)
[2023-02-08] MEDS ORDERED: methaDONE HCL 10 MG TABLET PO ONE (06:00)
[2023-02-08] MEDS: metoPROLOL SUCCINATE 25 MG TAB.SR.24H (FP) PO SCH (09:07)
[2023-02-08] MEDS: NICOTINE 14 MG/24 HOURS TOPICAL PATCH TD SCH (09:07)
[2023-02-08] MEDS: APIXABAN 5 MG TABLET PO SCH (09:07)
[2023-02-08] MEDS: MULTIVITAMINS (DAILY MVI) TABLET (FP) PO SCH (09:07)
[2023-02-08] MEDS: FOLIC ACID 1 MG TABLET (FP) PO SCH (09:07)
[2023-02-08] MEDS: MINERAL OIL/PET HY-PHL TOPICAL OINTMENT 454 GM JAR TP SCH (09:07)
[2023-02-08] MEDS ORDERED: methaDONE HCL 10 MG TABLET (FOR DETOX USE ONLY) PO ONE (10:00)
[2023-02-08 10:18] VITALS: BP 146/67; PULSE 112; RESP 18; TEMP 98.5
== END 2023-02-08 13:16 | disposition left against medical advice (07) | DRG 194 ==
LOC: JER 19:12 → JERBED 20:45 → UNDOADMIN 20:45 → J4S 02-04 08:09
PROVIDERS: ADMIT Internal Medicine; ATTEND Internal Medicine
DX: I50.23 Acute on chronic systolic (congestive) heart failure (principal); I42.0 Dilated cardiomyopathy; N17.9 Acute kidney failure, unspecified; I95.9 Hypotension, unspecified; I48.91 Unspecified atrial fibrillation; F11.10 Opioid abuse, uncomplicated; F14.10 Cocaine abuse, uncomplicated; F17.210 Nicotine dependence, cigarettes, uncomplicated; K76.1 Chronic passive congestion of liver; R74.01 Elevation of levels of liver transaminase levels; Z91.14 Patient's other noncompliance with medication regimen
CPT/HCPCS: 0241U-QW; 36415; 70450-TC; 71045-TC-FY; 76705-TC; 80053; 80307; 81003; 83735; 83880; 84100; 84484; 85025; 85027; 86780; 87086; 87389; 93005; 93010; 93306-TC; 93970-TC; 99285-25